=== PATIENT | female | born 1940 | race Caucasian/White ===

== ENCOUNTER 2019-09-20 09:24 | Emergency (ER) | payer OTHER ==
[~2019-09-20] VITALS: Ht 165.1 cm; Wt 93.0 kg
[2019-09-20] MEDS ORDERED: LEXAPRO20 MG PO (09:47)
[2019-09-20] MEDS ORDERED: IRON18 M1 PO (09:47)
[2019-09-20] MEDS ORDERED: VITAMIN B122500 MC1 PO (09:47)
[2019-09-20] MEDS ORDERED: PROTONIX 20 MG20 MG PO (09:47)
[2019-09-20] MEDS ORDERED: NORTRIPTYLINE H10 M2 PO (09:48)
[2019-09-20] MEDS ORDERED: ALEVE220 MG PO (09:48)
[2019-09-20] MEDS ORDERED: DILTIAZEM ER180 M2 PO (09:55)
[2019-09-20] MEDS ORDERED: BISOPROLOL FUMAR5 MG PO (09:55)
[2019-09-20] MEDS ORDERED: COZAAR 25 MG TA25 M1 PO (09:55)
[2019-09-20] MEDS ORDERED: MYRBETRIQ25 MG PO (09:56)
[2019-09-20] MEDS ORDERED: BREO ELLIPTA 21 EACH INH (09:57)
[2019-09-20] MEDS ORDERED: TYLENOL WITH CO1 TA1 PO (11:06)
[2019-09-20 11:54] VITALS: BP 164/83
== END 2019-09-20 11:55 | disposition home or self-care (01) ==
LOC: ER 09:24
DX: S80.01XA Contusion of right knee, initial encounter (principal); S00.12XA Contusion of left eyelid and periocular area, initial encounter; S00.11XA Contusion of right eyelid and periocular area, initial encounter; S00.83XA Contusion of other part of head, initial encounter; I10 Essential (primary) hypertension; J45.909 Unspecified asthma, uncomplicated; G62.9 Polyneuropathy, unspecified; F17.210 Nicotine dependence, cigarettes, uncomplicated; Z79.899 Other long term (current) drug therapy; W01.0XXA Fall on same level from slipping, tripping and stumbling without subsequent striking against object, initial encounter; Y93.01 Activity, walking, marching and hiking; Y92.89 Other specified places as the place of occurrence of the external cause; Y99.8 Other external cause status

== ENCOUNTER 2020-07-11 12:19 | Emergency (ER) | payer OTHER ==
[~2020-07-11] VITALS: Ht 165.1 cm; Wt 113.4 kg
[~2020-07-11 12:19] MED LIST: ALEVE220 MG PO; BISOPROLOL FUMAR5 MG PO; BREO ELLIPTA 21 EACH INH; COZAAR 25 MG TA25 M1 PO; DILTIAZEM ER180 M2 PO; IRON18 M1 PO; LEXAPRO20 MG PO; MYRBETRIQ25 MG PO; NORTRIPTYLINE H10 M2 PO; PROTONIX 20 MG20 MG PO; TYLENOL WITH CO1 TA1 PO; VITAMIN B122500 MC1 PO
[2020-07-11 15:02] LABS: ABSOLUTE NEUTROPHILS 2.5 thou/uL (1.4-8.2); BASOPHILS 1.2 % (0.0-2.0); EOSINOPHILS 0.3 % (0.0-3.0); HEMATOCRIT 42.2 % (37.0-47.0); HEMOGLOBIN 13.8 gm/dL (12.0-15.0); LYMPHOCYTES 33.9 % (24.0-44.0); MCH 27.6 pg (26.0-34.0); MCHC 32.6 g/dL (28.0-37.0); MCV 84.6 fL (80.0-100.0); MONOCYTES 10.3 % (1.0-8.0); PLATELET COUNT 231 thou/uL (150-400); POLYS 54.3 % (36.0-66.0); RBC 4.99 mil/uL (4.20-5.00); RDW 15.4 % (10.5-14.5); WBC 4.6 thou/uL (4.0-11.0)
[2020-07-11 15:10] LABS: ANION GAP 9 mmol/L (7-16); BUN 20 mg/dL (7-18); CALCIUM 9.4 mg/dL (8.5-10.1); CHLORIDE 100 mmol/L (98-107); CO2 29 mmol/L (21-32); CREATININE 0.8 mg/dL (0.6-1.0); GLUCOSE 94 mg/dL (74-106); POTASSIUM 4.5 mmol/L (3.5-5.1); SODIUM 138 mmol/L (136-145)
[2020-07-11 15:19] LABS: APTT 26.1 Seconds (24.5-32.8); PROTIME 10.6 Seconds (9.3-11.4)
[2020-07-11 15:20] LABS: ALBUMIN 3.5 g/dL (3.4-5.0); MAGNESIUM 2.2 mg/dL (1.8-2.4); SGOT 14 U/L (15-37); SGPT 18 U/L (30-65); TOTAL BILIRUBIN 0.5 mg/dL (0.2-1.0); TOTAL PROTEIN 7.1 g/dL (6.4-8.2); TROPONIN-I <0.06 ng/mL (<0.06)
[2020-07-11 16:01] LABS: URINE BILIRUBIN NEGATIVE (Negative); URINE BLOOD 1+ (Negative); URINE COLOR YELLOW; URINE GLUCOSE-RANDOM* NEGATIVE (Negative); URINE KETONES NEGATIVE (Negative); URINE NITRITE-REFLEX NEGATIVE (Negative); URINE PROTEIN (DIPSTICK) NEGATIVE (Negative); URINE UROBILINOGEN 0.2 E.U./dl (0.2-1.0)
[2020-07-11 16:07] LABS: URINE LEUKOCYTES-REFLEX 3+ (Negative)
[2020-07-11 16:08] LABS: URINE CLARITY SL HAZY
[2020-07-11 16:19] LABS: BACTERIA-REFLEX >30 Many /HPF (None Seen); SQUAMOUS 4-10 Moderate /LPF (0-3); URINE RBC 3-10 Few /HPF (0-2)
[2020-07-11 16:20] LABS: CASTS None Seen /LPF (None Seen); CRYSTALS None Seen /LPF (None Seen)
[2020-07-11 17:59] VITALS: BP 120/40
--- NOTE | 2020-07-12 15:12 | EKG ---
[place] [address] [facility] [place] [address] ELECTROCARDIOGRAM REPORT Name: KATHRYN CAMPBELL [id number] Admission: 07/11/20 Attend Phys: Discharge: 07/11/20 Date of : 36 Report #: [id number] [facility] ED Test Date: 2020-07-11 Test Time: 14:05:02 Pat Name: KATHRYN CAMPBELL Department: Room: Gender: F [employer] Repairer: JCKAYEMADALYNShabbir : 1940 Requested By: Tyler Malloy Order Number: [id number] MD: Andi Jones Measurements Intervals [place] Rate: 58 P: -5 MT: 194 QRS: -29 QRSD: 82 T: 28 QT: 427 QTc: 420 Interpretive Statements Sinus bradycardia Left ventricular hypertrophy Poor R wave progression No previous ECG available for comparison Electronically Signed On 07-12-2020 15:12:30 EVALUATION ASSISTANT by Andi Jones [email or web address] <ELECTRONICALLY SIGNED> By: Andi Jones MD, [facility] 07/12/20 1512 1405 1405 Andi Jones MD, FACC /EPI
== END 2020-07-11 18:00 | disposition home or self-care (01) ==
LOC: ER 12:19
PROVIDERS: Emergency Medicine; Nurse Practitioner
DX: N39.0 Urinary tract infection, site not specified (principal); R51.9 Headache, unspecified; I10 Essential (primary) hypertension; J45.909 Unspecified asthma, uncomplicated; Z79.899 Other long term (current) drug therapy; Z87.891 Personal history of nicotine dependence; Z88.8 Allergy status to other drugs, medicaments and biological substances